=== PATIENT | female | born 1940 | race Caucasian/White ===

== ENCOUNTER → 2016-03-05 | Outpatient (CLI) | payer OTHER ==
--- NOTE | 2016-03-05 16:27 | CT ---
CT Scan of the Chest Without Contrast 0930 hours History: Emphysema, previous smoker. Comparison: No prior CTs. Technique: Noncontrast multidetector helical CT imaging was performed from the superior thoracic inle t to the diaphragm. The radiologist manipulated images at the computer workstation. Dose reduction t echniques were utilized. Findings: Mild centrilobular emphysema with multiple cystic lucencies throughout both lungs especiall y bilateral upper lobes. Atherosclerotic thoracic aorta without aneurysm. Heart is normal in size. Co ronary artery calcifications identified. No pericardial effusion. In the left upper lobe lingula, there is a 7 mm solid noncalcified nonspecific pulmonary nodule, imag e 112 of series 3. Also in the left upper lobe anterior segment, there is a 4 mm nonspecific noncalci fied pulmonary nodule, image 103 of series 3. In the left lower lobe, there is a posterior pleural-based 7 mm noncalcified nonspecific pulmonary no dule. In the left lower lobe more laterally, there is a 3 mm nonspecific noncalcified pulmonary nodule on i mage 139 of series 3. In the right upper lobe, there is a 5 mm nonspecific noncalcified pulmonary nodule anterior segment o n image 68 of series 3. In the right middle lobe, there is a 6 mm nonspecific noncalcified pulmonary nodule on image 159 of s eries 3. Also the right middle lobe is a 4 mm nonspecific noncalcified pulmonary nodule on image 153 of series 3. No significant mediastinal or hilar adenopathy. No adrenal enlargement. Atherosclerotic abdominal aor ta is partially visualized. Moderate degenerative disk disease midthoracic spine with mild midthoraci c compression deformities, benign and old. Impression: 1. Mild diffuse centrilobular emphysema. 2. Several nonspecific noncalcified pulmonary nodules up to 7 mm in size for which follow up chest in 3 months and continued monitoring up to 2 years is recommended. 3. Coronary artery calcifications with atherosclerotic thoracic and abdominal aorta without aneurysm. 4. Midthoracic old mild compression deformities. Consider DEXA bone scan evaluation. [employer] RECOMMENDATIONS For Follow Up and Management of Solid Nodules Smaller Than 8 mm De tected Incidentally at CT Low Risk Patients (minimal or absent history of smoking and of other known risk factors) Less than or equal to 4 mm no follow up required >4-[address] at 12 months; if unchanged, no further follow up >6-[address] at 6-12 months, then at 18-24 months if no change >[address] at around 3, 9, and 24 months, dynamic contrast-enhanced CT, PET, and/or biopsy . High Risk Patients (history of smoking or of other known risk factors) Less than or equal to [address] at 12 months; if unchanged, no further f ollow up >4- [address] at 6-12 months, then at 18-24 months if no change >6- [address] at 3-6 months, then at 9-12 months and 24 months if no change. >8 mm same as low risk patient Note: Nonsolid (groundglass) or partially solid nodules will require a longer follow up to exclude in dolent adenocarcinoma. A Follow-Up Required test result notification was sent via the [employer] service, 4:15:14 PM, 03/05/2016 , [employer] Message ID [id number].
== END ==
LOC: CIMAGING 09:15
PROVIDERS: ATTEND Internal Medicine Pulmonary Disease
DX: J43.9 Emphysema, unspecified (principal); R91.1 Solitary pulmonary nodule; I25.10 Atherosclerotic heart disease of native coronary artery without angina pectoris; Z87.891 Personal history of nicotine dependence
CPT/HCPCS: 71250-PO

== ENCOUNTER → 2016-05-22 | Outpatient (CLI) | payer OTHER | LOC: CIMAGING 08:18 | DX: Z12.31 Encounter for screening mammogram for malignant neoplasm of breast (principal) | CPT/HCPCS: G0202 ==

== ENCOUNTER → 2017-05-20 | Outpatient (CLI) | payer OTHER | LOC: CIMAGING 08:31 | PROVIDERS: ATTEND Family Medicine | DX: Z12.31 Encounter for screening mammogram for malignant neoplasm of breast (principal) ==

== ENCOUNTER → 2017-11-18 | Outpatient (CLI) | payer OTHER | LOC: CIMAGING 14:23 | PROVIDERS: ATTEND Podiatrist | DX: M77.52 Other enthesopathy of left foot and ankle (principal); M19.072 Primary osteoarthritis, left ankle and foot; M85.472 Solitary bone cyst, left ankle and foot | CPT/HCPCS: 73630-PO ==

== ENCOUNTER → 2018-05-21 | Outpatient (CLI) | payer OTHER | LOC: CIMAGING 08:11 | PROVIDERS: ATTEND Family Medicine | DX: Z12.31 Encounter for screening mammogram for malignant neoplasm of breast (principal) ==